=== PATIENT | male | born 1935 | race Caucasian/White ===

== ENCOUNTER → 2017-01-01 | Outpatient (CLI) | payer BC, MEDICARE ==
[~2017-01-01] MED LIST: ALOE VERA PO; COLACE 100100 MG/CAP PO; GLUCOSAMINE & C1 TAB PO; LORTAB 5/500 501 TAB PO; MOTRIN 600600 MG/TAB PO; NO HOME MEDICATIONS; NORCO 325 MG-51 TAB PO; Primrose PO; VITAMIN D32000 IU PO; VTAMINC250TA PO; ZOFRAN ODT4 MG PO
== END ==
LOC: COL.RAD 07:06
DX: K80.20 Calculus of gallbladder without cholecystitis without obstruction (principal); N28.1 Cyst of kidney, acquired

== ENCOUNTER 2017-01-08 10:45 | Day surgery (SDC) | payer BC, MEDICARE ==
[~2017-01-08] VITALS: Ht 182.9 cm; Wt 85.0 kg
[2017-01-08] VITALS (7 sets, daily range): BP systolic 110–118; BP diastolic 61–86; PULSE 55–76; TEMP 97.6–98
[~2017-01-08 10:45] MED LIST changes: -ALOE VERA PO; -COLACE 100100 MG/CAP PO; -GLUCOSAMINE & C1 TAB PO; -MOTRIN 600600 MG/TAB PO; -NORCO 325 MG-51 TAB PO; -Primrose PO; -VITAMIN D32000 IU PO; -VTAMINC250TA PO; -ZOFRAN ODT4 MG PO
[2017-01-08] MEDS ORDERED: Primrose PO (12:26)
[2017-01-08] MEDS ORDERED: GLUCOSAMINE & C1 TAB PO (12:26)
[2017-01-08] MEDS ORDERED: VTAMINC250TA PO (12:27)
[2017-01-08] MEDS ORDERED: VITAMIN D32000 IU PO (12:27)
[2017-01-08] MEDS ORDERED: ALOE VERA PO (12:27)
[2017-01-08] MEDS ORDERED: NORCO 325 MG-51 TAB PO (15:51)
[2017-01-08] MEDS ORDERED: MOTRIN 600600 MG/TAB PO (15:51)
[2017-01-08] MEDS ORDERED: ZOFRAN ODT4 MG PO (15:52)
[2017-01-08] MEDS ORDERED: COLACE 100100 MG/CAP PO (15:52)
== END 2017-01-08 18:53 | disposition home or self-care (01) ==
LOC: SDCO 10:45
DX: K80.10 Calculus of gallbladder with chronic cholecystitis without obstruction (principal); K83.5 Biliary cyst
CPT/HCPCS: J0694; J1100; J1885; J2405; J2704; J2710; J3010; J7120; Q9967